=== PATIENT | female | born 2000 | race Two or more races ===

== ENCOUNTER 2019-06-23 17:57 | Emergency (ER) | payer MEDICAID ==
[~2019-06-23] VITALS: Ht 149.9 cm; Wt 59.0 kg
[2019-06-23 17:58] VITALS: BP 110/76
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
[2019-06-23] MEDS ORDERED: Ketorolac 30mg Inj IM ONE (18:15)
--- NOTE | 2019-06-23 18:15 | NUR ---
Confirmed with patient no possibility of . patient signed waive form for radiology, radiology informed.
--- NOTE | 2019-06-23 18:57 | NUR ---
HAND-OFF: Report given to RENNY Cespedes. Endorsed pending urine collection.
--- NOTE | 2019-06-23 18:58 | NUR ---
ED Nurse Note: Got report from Se Leo RN. Patient is resting in yhe bed, no acute disstress noticed, AAO x4, VSS at this time, patient remain in c-collar.
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
--- NOTE | 2019-06-23 19:13 | Diagnostic Imaging Report ---
EXAM: XR Lumbosacral Spine, 2 or 3 Views CLINICAL HISTORY: PAIN TECHNIQUE: Frontal and lateral views of the lumbar spine and sacrum. COMPARISON: No relevant prior studies available. FINDINGS: Vertebrae: Bilateral spondylolysis at L5 with minimal spondylolisthesis appears to be chronic. There is angulation of the distal sacrum suggestive of a chronic fracture. Clinical correlation is required Sacrum coccyx: Unremarkable as visualized. No acute fracture. Disc spaces: No acute findings. No significant narrowing. Soft tissues: Unremarkable. 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 There valgus are smoothly corticated suggestive chronic finding. Angulation of the distal sacrum which appears to be chronic. Clinical correlation is required to exclude acute distal sacral fracture.
--- NOTE | 2019-06-23 19:19 | Diagnostic Imaging Report ---
ADDENDUM - Added by Kang Emmanuel MD on 06 23 2019 7:25 PM (-05:00) IMPRESSION: No evidence for fracture or malalignment CERVICAL spine EXAM: CT Cervical Spine Without Intravenous Contrast CLINICAL HISTORY: PAIN TECHNIQUE: Axial computed tomography images of the cervical spine without intravenous contrast. CTDI is 12 mGy and DLP is 358.7 mGy-cm. One or more of the following dose reduction techniques were used: automated exposure control, adjustment of the mA and or kV according to patient size, use of iterative reconstruction technique. COMPARISON: No relevant prior studies available. FINDINGS: Vertebrae: Unremarkable. No acute fracture. Discs spinal canal neural foramina: No acute findings. No spinal canal stenosis. Soft tissues: Unremarkable. IMPRESSION: No evidence for fracture or malalignment lumbar spine <MYCVCSECTION> [employer] 06 23 19 19:24 Call From [facility] on 06 23 19:23 (-08:00)
[2019-06-23] MEDS ORDERED: CYCLOBENZAPRINE10 MG ORAL (19:33)
[2019-06-23 19:40] VITALS: BP 110/76
--- NOTE | 2019-06-23 19:42 | NUR ---
ED Nurse Note: Pt cleared by health care Provider for discharge. DC instructions/prescription was given and explained to pt and verbalized understanding of teachings. All medical deviecs such as ID band removed. Pt is AAO x4, ambulatory and left with all personal belongings.
== END 2019-06-23 19:40 | disposition home or self-care (01) ==
LOC: EDBD 17:57 → EMR 19:19
DX: M54.2 Cervicalgia (principal); M54.5 Low back pain; M47.9 Spondylosis, unspecified; V43.62XA Car passenger injured in collision with other type car in traffic accident, initial encounter; Y92.410 Unspecified street and highway as the place of occurrence of the external cause
CPT/HCPCS: 72020; 72125; 96372; J1885; Z7502; 99284